=== PATIENT | male | born 1950 | race Caucasian/White ===

== ENCOUNTER → 2022-11-17 16:28 | Emergency (ER) | payer MEDICARE ==
[~2022-11-17] VITALS: Ht 175.3 cm; Wt 101.3 kg
[2022-11-17 16:37] VITALS: BP 129/70
== END | disposition left against medical advice (07) ==
LOC: ER 16:28
DX: R07.9 Chest pain, unspecified (principal); Z53.21 Procedure and treatment not carried out due to patient leaving prior to being seen by health care provider
CPT/HCPCS: 93005